=== PATIENT | female | born 1990 | race Hispanic/Latino ===

== ENCOUNTER 2016-11-05 22:50 | Inpatient (IN) | payer MEDICAID ==
[~2016-11-05] VITALS: Ht 154.3 cm; Wt 62.1 kg
[2016-11-05] MEDS ORDERED: CeFAZolin Inj 2 GM in IV Premix 1 EACH IV STA (23:43)
[2016-11-05] MEDS ORDERED: Lactated Ringer's 1,000 ML IV SCH (23:43)
[2016-11-05] MEDS ORDERED: Carboprost 250 mCg/mL Inj IM PRN (23:45)
[2016-11-05] MEDS ORDERED: Methylergonovine 0.2 mg/mL Inj IM PRN (23:45)
[2016-11-05] MEDS ORDERED: Oxytocin 10 Unit/mL Inj IM PRN (23:45)
[2016-11-05] MEDS ORDERED: Hemorrhage Kit, Post Partum XX ONE (23:45)
[2016-11-05] MEDS ORDERED: Sodium Citrate-Citric Acid 15 mL Solution PO SCH (23:45)
--- NOTE | 2016-11-05 23:55 | PCM.HPOB ---
Subjective Referring Provider: Admitting Physician: Shadia Laurent MD Primary Care Physician: Lindsey Franco MD Attending Physician: Shadia Laurent MD Chief Complaint Contractions History of Present History of Present Illness She is a 26-year-old female 2 para 1001 with an estimated due date of 11/20/2016 by LMP and confirmed by an 8 week ultrasound. She presents to the [facility] with complaints of contractions since yesterday. She reports that her contractions have become more intense and she has had some pink vaginal discharge at home. On presentation to the [facility] she was found to be 2 cm dilated and appeared uncomfortable with contractions. She has a history of a previous delivery for breech presentation at 30 weeks and 5 days. This has been complicated by an outbreak of shingles proven by culture on 08/21/2016. She had a positive IgG titer. He has a remote history of syphilis and Chlamydia that were both treated. She had an abnormal one-hour glucose, but normal three-hour glucose tolerance test. Obstetrical Complications: Other (concern for macrosomia) Past Medical History Obstetrical History: Her first she had a primary delivery at 38 weeks for breech presentation without complications. Gynecologic History: She has a history of ASCUS Pap with high-risk HPV in 2013. Her menstrual this mass her was on 04/30/2016 and was normal. She has a history of syphilis in 2007 that was treated He has a history of many in 2007 and was treated Medical History: History of symmetrical thyromegaly Surgical History: delivery Social History: She denies any alcohol tobacco or illicit drug use Hx Tobacco Use: No Hx Alcohol Use: No Hx Substance Use: No Past Family History Family History No significant past family history Living Arrangement: with Family Genetic Screening/Counseling Genetic Screening/Counseling: Negative Baby father-had child w defect: No Allergy Coded Allergies: No Known Allergies (Unverified Allergy, Unknown, 09/30/14) Exam Vital Signs Afebrile vital signs stable Exam Heart rate tracings category 1 and patient is anila every 5 minutes Constitutional: Well-developed HEENT: Atraumatic Lungs: Clear to Auscultation Heart: Exam Unremarkable Abdomen: Gravid Neurological/Psychiatric: Alert, Oriented X3, Cooperative, Mild Distress Neuro: Grossly Neurologically Intact Labs/Diagnostics Maternal Blood Type: O (Positive) Previous Infant with GBS: No Rubella: Immune Lab History: Positive for: Hx Chicken Pox OB Intrapartum Assessment/Plan Problems: (1) Previous delivery affecting Plan: Plan for repeat delivery. I reviewed with the patient risk of repeat delivery with insurance analyst and informed consent was obtained. Status: Acute ICD Code: O34.219 (2) 37 weeks gestation of Plan: 38 weeks on 11/06/2016 Status: Acute ICD Code: Z3A.37 Curly Alejandro MD Nov 05, 2016 23:55
[2016-11-06 00:04] LABS: Mean Corpuscular Hemoglobin 27.3 pg (27.0-35.0); Mean Corpuscular Volume 83.8 fL (81-100)
--- NOTE | 2016-11-06 00:39 | PCM.HPANE ---
Patient Data Date of Service: Nov 06, 2016 Surgeon Admitting Provider:Shadia Laurent MD Attending Provider:Shadia Laurent MD Primary Care Physician:Lindsey Franco MD Other Provider:Ina Barksdale Anesthesia Reason for Visit Term Labor TERM LABOR Ht/WT & BMI Height (Centimeters): 154.3 Weight (Kilograms): 62.14 Body Mass Index 26.1 Allergies Coded Allergies: No Known Allergies (Unverified Allergy, Unknown, 09/30/14) Past Anesthesia History Anesthesia History: Denies:: Anesthesia Reactions, Fam Anesthesia Reaction, Fam Malignant Hypertherm Diabetes History Hx Diabetes?: No Medications Hypertension Medication: No Home Meds Incl Beta Nani: No History History of ENT Problems?: No HEENT History: Denies:: TMJ Denture Type: None Teeth Condition: Within Normal Limits Hx of Heart Problems?: No Cardiovascular History: Denies:: Congestive Heart Failure Hypertension Valvular Heart Disease Hx of Respiratory Problem?: No Respiratory History: Denies:: Asthma Tuberculosis Hx Neurologic Problems?: No Hx of GI Problems?: No Hx of Problems?: No Female Hx: Positive for:: Currently Hx Musculoskeletal Problems?: No Hx Surgeries?: Yes (C-sec x1 (2009)) Hx Diabetes: No Hx Alcohol Use: NoHx Substance Use: No Smoking Status: Never Smoker Have You Smoked inLast 12 mo: No Stop/Bang Risk Assessment Category Category 1A: Patient has history of documented sleep apnea, and HAS NOT received any narcotic, sedative or anesthesia administration during this stay. Category 1B: Patient has history of documented sleep apnea, and HAS received any narcotic , sedative or anesthesia administration during this stay Category 2: Patient has SUSPECTED Obstructive Sleep Apnea, and HAS received any narcotic , sedative or anesthesia administration during this stay. Category 3: Patient has SUSPECTED Obstructive Sleep Apnea and HAS NOT received narcotic, sedative or anesthesia administration during this stay. Category 4: Outpatient in Procedural Areas with known sleep apnea or who screen positive for High Risk via the STOP/BANG questionnaire. Exam Exam General Appearance: Alert, Oriented X3, Cooperative, Mild Distress HEENT/AIRWAY: MP 3, Mouth Opening (3 fb) Lungs: Clear to Auscultation Heart: Exam Unremarkable, Regular Rate/Rhythm, No Murmurs/Rubs/Gallops Meds/Labs/Diagnostics Admission Meds Current Medications Lactated Ringer's (Lr) 1,000 ml @ 125 mls/hr Q8H IV Last administered on t 00:15; Start 11/05/16 at 23:43; Stop 11/06/16 at 07:42 Labs Test 11/05/16 23:55 White Blood Count 7.9th/mm3 (3.8-10.1) Red Blood Count 3.95mil/mm3 (3.90-5.20) Hemoglobin 10.8g/dL (12.0-15.6) Hematocrit 33.1% (35.0-46.0) Mean Corpuscular Volume 83.8fL (81-100) Mean Corpuscular Hemoglobin 27.3pg (27.0-35.0) Mean Corpuscular Hemoglobin Concent 32.6% (32.0-37.0) Red Cell Distribution Width 13.9% (12.3-15.4) Platelet Count 247bil/L (150-400) Plan Impression Patient chart reviewed, patient interviewed and anesthestic plan with risks, benefits, and alternatives discussed, and informed consent obtained. ASA Physical Status: ASA2 Plus Emergency Anesthetic Plan: SAB Bene/Risks/Altern/Consents: Yes HP Complete Prior to Induction: Yes Kade Hurst MD Nov 06, 2016 00:39
[2016-11-06] MEDS ORDERED: EPHEDrine Sulfate 50 mg/mL Inj IVPUSH PRN (01:10)
[2016-11-06] MEDS ORDERED: HYDROmorphone 1 mg/mL Inj IVPUSH PRN (01:10)
[2016-11-06] MEDS ORDERED: Ondansetron 2 mg/mL 2 mL Inj IVPUSH PRN (01:10)
[2016-11-06] MEDS ORDERED: Atropine 0.4 mg/mL Inj IV PRN (01:10)
[2016-11-06] MEDS ORDERED: Phenylephrine/NS-PF 100 mCg/mL 5 mL Syringe IVPUSH PRN (01:10)
[2016-11-06] MEDS ORDERED: fentaNYL-PF 50 mCg/mL 2 mL Inj IVPUSH PRN (01:10)
--- NOTE | 2016-11-06 02:15 | PCM.ANEP1 ---
Post Anesthesia PACU Phase 1 Assessment Date of Service: Nov 06, 2016 Vital Signs T 36.5 C HR 60 BP 119/63 RR 18 SpO2 100% on RA Anesthetic Administered: SAB Level of Alertness: Awake, talking HARKINS's with Equal Strength: No (motor block resolving) Pain: No Nausea or Vomiting: No CV Function & Hydration Stable: Yes Airway Device: none Oxygen Delivery: Room Air Lungs: Clear to Auscultation Dermatome Level: T8 (Costal Margin) (sensory block resolving) PACU Phase 2 Assessment Complications: No Follow up Care: No Patient Instructions Provided: Yes Comments Pt satisfied with anesthetic care. Kade Hurst MD Nov 06, 2016 02:15
[2016-11-06] MEDS ORDERED: Lactated Ringer's 1,000 ML IV SCH (02:33)
[2016-11-06] MEDS ORDERED: Hemorrhage Kit, Post Partum XX ONE (02:35)
[2016-11-06] MEDS ORDERED: Methylergonovine 0.2 mg/mL Inj IM PRN (02:35)
[2016-11-06] MEDS ORDERED: diphenhydrAMINE 50 mg Capsule PO PRN (02:35)
[2016-11-06] MEDS ORDERED: Oxytocin 30 Units/500 mL LR 30 UNITS in IV Premix 1 EACH IV PRN (02:35)
[2016-11-06] MEDS ORDERED: hydrOXYzine Pamoate 25 mg Capsule PO PRN (02:35)
[2016-11-06] MEDS ORDERED: Oxytocin 10 Unit/mL Inj IM PRN (02:35)
[2016-11-06] MEDS ORDERED: LANOlin HPA 7 Gm Ointment TOPICAL PRN (02:35)
[2016-11-06] MEDS ORDERED: Carboprost 250 mCg/mL Inj IM PRN (02:35)
[2016-11-06] MEDS ORDERED: Acetaminophen IV 1,000 MG in IV Premix 1 EACH IV PRN (02:35)
--- NOTE | 2016-11-06 02:59 | OP ---
[address] [address] OPERATIVE REPORT PATIENT: HEDY LALA : 1990 MR#: [id number] ADMIT: 11/05/2016 JOB ID: [id number] DATE OF SURGERY: 11/06/2016 PREOPERATIVE DIAGNOSIS(ES): 1. Previous delivery, desires repeat. 2. 38 weeks gestation, in labor. POSTOPERATIVE DIAGNOSIS(ES): 1. Previous delivery, desires repeat. 2. 38 weeks gestation, in labor. PROCEDURE PERFORMED: Repeat low transverse delivery. SURGEON: Curly Alejandro MD. CITY TREASURER: MD Dr. Isabel Meyers was necessary for this procedure to help with exposure and delivery of . ANESTHESIA: Spinal. ESTIMATED BLOOD LOSS: 500 mL. COMPLICATIONS: None. PATHOLOGY SENT: None. FINDINGS AT TIME OF SURGERY: Male in a cephalic presentation. Normal appearing uterus, fallopian tubes, and ovaries bilaterally. There was no intra-abdominal adhesions. INDICATION FOR PROCEDURE: The patient is a 26-year-old, female, 2, para 1-0-0-1, with an estimated due date of November 20, 2016, who presented to the [facility] with regular contractions, and was found to be 2 cm dilated. DESCRIPTION OF PROCEDURE: The patient was taken to the operating room, where her spinal anesthesia was found to be adequate. She was placed in a lithotomy position in a leftward tilt and prepared and draped in normal sterile fashion. A Pfannenstiel incision was made with a scalpel through her previous skin incision scar. This was carried down to the underlying fascia with the Bovie cautery. The fascia was nicked in the midline and extended laterally with the Kulkarni scissors. The underlying rectus muscle was dissected off of the fascia with blunt and sharp dissection superiorly and inferiorly. The rectus muscles were in the midline and the peritoneum was entered bluntly with surgeon's hands. This incision was extended with gentle traction. The lower uterine segment was identified. The bladder flap was created, and the uterus incised in low transverse fashion with the scalpel. The infant was delivered in a cephalic presentation without difficulty. The cord was doubly clamped and ligated after 1 minute. The was handed off to the waiting nurse and respiratory therapist. The placenta was then removed manually. The uterus was exteriorized and cleared of all clots and debris. The uterus was repaired in two layers with 0-Vicryl suture in a running fashion. Good hemostasis assured. The gutters were then irrigated with copious amounts of normal saline. The uterus was returned to the patient's peritoneal cavity. The uterine incision was inspected a second time and noted to be hemostatic. More irrigation was performed at this time. The fascia was then reapproximated with 0-Vicryl suture in a running fashion. The subcutaneous layer was closed with 0 plain gut. Skin was closed with a 4-0 Monocryl in a subcuticular fashion. Dermabond and Steri-Strips applied. All lap, instrument, and needle counts correct x2 at the end of the procedure. The patient was taken to her room in good condition.
[2016-11-06] MEDS: Ascorbic Acid 500 mg Tablet PO SCH (11:01)
[2016-11-06] MEDS: Sodium Chloride LOK Flush 10 mL Syringe IVFLUSH PRN ×2 (12:19→18:05)
[2016-11-06] MEDS ORDERED: Phenylephrine/NS-PF 100 mCg/mL 5 mL Syringe IVPUSH ONE (14:31)
[2016-11-06] MEDS ORDERED: Oxytocin 10 Unit/mL Inj ONE (14:31)
[2016-11-06] MEDS ORDERED: Morphine PF 1 mg/mL 10 mL Inj ONE (14:31)
[2016-11-06] MEDS ORDERED: Ondansetron 2 mg/mL 2 mL Inj ONE (14:31)
[2016-11-06] MEDS ORDERED: BUPIVACAINE MPF ONE (14:31)
[2016-11-06] MEDS ORDERED: MetoCLOpramide 5 mg/mL 2 mL Inj ONE (14:31)
[2016-11-06] MEDS ORDERED: EPHEDrine/NS 5 mg/mL 5 mL Syringe ONE (14:31)
[2016-11-06] MEDS ORDERED: fentaNYL-PF 50 mCg/mL 2 mL Inj ONE (14:31)
[2016-11-07] MEDS: Sodium Chloride LOK Flush 10 mL Syringe IVFLUSH PRN (00:01)
[2016-11-07 06:50] LABS: Mean Corpuscular Hemoglobin 27.3 pg (27.0-35.0); Mean Corpuscular Volume 85.6 fL (81-100)
[2016-11-07] MEDS: Ascorbic Acid 500 mg Tablet PO SCH (09:42)
[2016-11-07] MEDS ORDERED: Lidocaine 2% 5 mL Urojet Topical Jelly Syringe ONE (11:02)
--- NOTE | 2016-11-07 13:45 | PCM.PNOBPP ---
Subjective Date of Service Nov 07, 2016 Post : Repeat Ceserean Delivery Lochia: Normal Pain Management: PO pain meds Gastrointestinal: Good Appetite, No N/V Postop Activity: Ambulate without Assist Rubella: Immune Blood Type: O (Positive) Labs Laboratory Tests 11/07/16 06:31: White Blood Count 10.3, Red Blood Count 3.33, Hemoglobin 9.1, Hematocrit 28.5, Mean Corpuscular Volume 85.6, Mean Corpuscular Hemoglobin 27.3, Mean Corpuscular Hemoglobin Concent 31.9, Red Cell Distribution Width 14.1, Platelet Count 217 Exam Vital Signs Vital Signs T (max) 36.9 104/73 72 18 100% sat on RA Vital Signs: VS reviewed, stable Exam Abdomen: Fundus firm General: Alert, Oriented X3 Surgical Wound : Incision General Appearence: Intact, Well Approximated, Incision Healing, No Erythemia, No Discharge, No Inflammatory Changes OB Post Assessment/Plan Assessment The patient is a 26-year-old, 2, para 2-0-0-2 POD#1 S/p RCD for active labor , declined TOLAC. Urinary retention, Pt voided X2 in the am 200 ml Each then had sever pain S/P Scott cath reinsertion, draigned 500 ml. D/c scott cather at 5: am in the am tomorrow. Anticipate discharge tomorrow. Problems: (1) Previous delivery affecting Status: Acute ICD Code: O34.219 (2) 37 weeks gestation of Status: Acute ICD Code: Z3A.37 Lindsey Franco MD Nov 07, 2016 13:45
[2016-11-07] MEDS: oxyCODONE-Acetamin 5-325 mg Tablet PO PRN ×2 (16:41→20:51)
[2016-11-08] MEDS: oxyCODONE-Acetamin 5-325 mg Tablet PO PRN ×3 (06:01→15:44)
[2016-11-08] MEDS: Ascorbic Acid 500 mg Tablet PO SCH (10:45)
--- NOTE | 2016-11-08 13:00 | PCM.DIOB ---
Obstetrical Disch Instruction Date of Service: Nov 08, 2016 Dates of Hospitalization Date of Hospital Admission Nov 05, 2016 at 23:34 Providers Admitting Physician: Shadia Laurent MD Primary Care Physician: Lindsey Franco MD Attending Physician: Shadia Laurent MD Discharge Diagnosis Discharge Diagnosis status post repeat section Problems: (1) Previous delivery affecting Status: Acute ICD Code: O34.219 (2) 37 weeks gestation of Status: Acute ICD Code: Z3A.37 Diet Discharge Diet: No restrictions Activity Discharge Activity-General: Pelvic Rest for 6 weeks (No sex, no tampons and no douching ), Be up and about, No lifting >10 pounds for 4-6 weeks Dressing and Incisional Care Hygiene: May shower, Wash incision with soap & water (then pad dry ), DO NOT soak incision under water, NO bathtub, hot tub or whirlpool Follow Up Plan Follow-up Provider (F9): Lindsey Franco MD Follow-up appointment: Weeks (Two) Call your provider for: Fever or Chills, Shortness of breath, Heavy vaginal bleeding, Heavy bleeding, Epigastric pain, Excessive constipation, Vaginal discomfort, Red painful breasts, Other (Headache, change in vision, nausea/ vomiting, leg swelling, pain or change in color. ) Lindsey Franco MD Nov 08, 2016 13:00
[2016-11-08] MEDS ORDERED: Simethicone PO (13:03)
[2016-11-08] MEDS ORDERED: IBUP-1827 PO (13:03)
[2016-11-08] MEDS ORDERED: FERR-74 PO (13:04)
[2016-11-08] MEDS ORDERED: OXYC1TAB24 PO (13:04)
[2016-11-08] MEDS ORDERED: DOCU-41 PO (13:04)
--- NOTE | 2016-11-08 13:04 | PCM.DC.OB ---
Obstetrical Discharge Summary Date of Service Nov 08, 2016 Date of hospital admission Nov 05, 2016 at 23:34 Providers Admitting Physician: Shadia Laurent MD Primary Care Physician: Rupa Amos MD Attending Physician: Shadia Laurent MD Problems: (1) Previous delivery affecting Status: Acute ICD Code: O34.219 (2) 37 weeks gestation of Status: Acute ICD Code: Z3A.37 Brief History and Physical: She is a 26-year-old female 2 para 1001 with an estimated due date of 11/20/2016 by LMP and confirmed by an 8 week ultrasound. She presents to the [facility] with complaints of contractions since yesterday. She reports that her contractions have become more intense and she has had some pink vaginal discharge at home. On presentation to the [facility] she was found to be 2 cm dilated and appeared uncomfortable with contractions. She has a history of a previous delivery for breech presentation at 30 weeks and 5 days. This has been complicated by an outbreak of shingles proven by culture on 08/21/2016. She had a positive IgG titer. He has a remote history of syphilis and Chlamydia that were both treated. She had an abnormal one-hour glucose, but normal three-hour glucose tolerance test. ([Simethicone]) 80 MG CHEW 80 MG PO QID PRN PRN for gas Prescribed by: RUPA AMOS MD Docusate Sodium (Colace) 100 Mg Capsule 100 MG PO BID Prescribed by: RUPA AMOS MD Ferrous Sulfate (Feosol) 325 Mg Tablet 325 MG PO DAILY Prescribed by: RUPA AMOS MD Ibuprofen (Ibuprofen) 600 Mg Tablet 600 MG PO QID PRN PRN For Pain Prescribed by: RUPA AMOS MD oxyCODONE-Acetaminophen 5-325 mg (oxyCODONE-Acetaminophen 5-325 mg) 1 Each Tablet 1-2 TAB PO Q4H PRN PRN For Pain Prescribed by: MD Joan MOTA Omaima A MD Nov 08, 2016 13:04
[2016-11-08 14:26] VITALS: BP 110/59; PULSE 73; RESP 18
== END 2016-11-08 16:10 | disposition home or self-care (01) | DRG 766 ==
LOC: FBCO 22:50 → FBC 23:34
PROVIDERS: ADMIT Obstetrics & Gynecology; ATTEND Obstetrics & Gynecology
PROC: 10D00Z1 Extraction of Products of Conception, Low, Open Approach (ICD-10-PCS; principal; 2016-11-06 00:30)
DX: O34.211 Maternal care for low transverse scar from previous cesarean delivery (principal); O90.89 Other complications of the puerperium, not elsewhere classified; R33.9 Retention of urine, unspecified; Z3A.37 37 weeks gestation of pregnancy; Z37.0 Single live birth

== ENCOUNTER 2016-11-09 10:40 | Emergency (ER) | payer MEDICAID ==
[~2016-11-09 10:40] MED LIST: DOCU-41 PO; FERR-74 PO; IBUP-1827 PO; OXYC1TAB24 PO; Simethicone PO
[2016-11-09 10:42] VITALS: BP 119/78; PULSE 81; RESP 14; O2SAT 99
--- NOTE | 2016-11-09 10:59 | ED.REPORT ---
HPI-Headache Date of Service Nov 09, 2016 ED Provider: Cristobal Hopson MD 26-year-old female with recent medical history of section with spinal block presents today for severe headache. She states that this headache occurred suddenly when she stood up this morning, pain is exacerbated by sitting on the side of the bed. Patient states that the pain is so severe that she crushed her teeth this morning laying in bed as this was more comfortable position. She contacted her OB doc who suggested that she take pain medication for headache, this was of no benefit. She states that since this morning she has had constant pain in the neck area which is alleviated by laying down however not completely resolved. Also her symptoms may take anywhere between 5- 10 minutes to resolve upon laying down. She states the pain is increased while standing up she also experiences blurred vision, nausea, dizziness. Nursing Notes Stated Complaint: SUDDEN HEADACHE Chief Complaint: Headache Nursing Notes Reviewed: Yes Allergies: Coded Allergies: No Known Allergies (Unverified Allergy, Unknown, 11/09/16) Scheduled Docusate Sodium (Colace) 100 Mg Capsule 100 MG PO BID Ferrous Sulfate (Feosol) 325 Mg Tablet 325 MG PO DAILY Scheduled PRN ([Simethicone]) 80 MG CHEW 80 MG PO QID PRN PRN for gas Ibuprofen (Ibuprofen) 600 Mg Tablet 600 MG PO QID PRN PRN For Pain oxyCODONE-Acetaminophen 5-325 mg (oxyCODONE-Acetaminophen 5-325 mg) 1 Each Tablet 1-2 TAB PO Q4H PRN PRN For Pain General Time Seen by MD: 10:57 Chief Complaint Headache, Neck pain Hx Obtained From: Patient Sudden in Onset?: Yes Onset Occurred: Just prior to arrival Symptom Duration: Since onset Severity: Current: Pain level 6 out of 10 Associated with: Reports: Nausea, Pain, Visual disturbance, Denies: Fever, Vertigo, Vomiting Recent Healthcare: Recent hospitalization Risk-Headache )( SAH Risk Stratification RF Statements: Risk factors reviewed )( IC Mass Risk Stratification RF Statements: Risk factors reviewed Past Medical History Past Medical History Recent hospitalization for with spinal block Past Surgical History Reports: Smoking History Never Smoker Social History Alcohol Use: Denies alcohol use Drug Use: Denies drug use Review of Systems Complete sys rev & neg: except as marked. Physical Exam Initial Vital Signs Vital Signs (First) Date Time Temp Pulse Resp B/P Pulse Ox O2 Delivery O2 Flow Rate FiO2 11/09/16 10:42 37.1 81 14 119/78 99 Room Air Initial VS: Reviewed ENT: Mucous membranes moist, Conjunctiva normal, No scleral icterus Respiratory: Breath sounds normal, Clear to auscultation, No respiratory distress Cardiovascular: Regular rate & rhythm, Heart sounds normal, Intact distal pulses Abdomen / GI: Soft, Non-tender, No guarding, No rebound, No distention Extremities: Vascular intact, Neuro intact, No swelling, No tenderness Skin: Warm, Dry, No cyanosis Psychiatric: Mood/affect normal, Behavior normal, Normal thought content Head / Eyes: Atraumatic, Normocephalic, EOMI, No nystagmus Neurologic: Oriented X3, Speech NL, No motor deficits, No sensory deficits Mental Status: Negative: Confused Interpretation & Diagnostics Lab Results Interpretation Result Diagram: 11/09/16 1204 Test 11/09/16 10:40 11/09/16 12:04 Hold Purple Top Tube Received (Received) Hold Blue Top Tube Received (Received) Hold Galliano Top Tube Received (Received) White Blood Count 9.4th/mm3 (3.8-10.1) Red Blood Count 3.61mil/mm3 (3.90-5.20) Hemoglobin 10.1g/dL (12.0-15.6) Hematocrit 31.1% (35.0-46.0) Mean Corpuscular Volume 86.1fL (81-100) Mean Corpuscular Hemoglobin 28.0pg (27.0-35.0) Mean Corpuscular Hemoglobin Concent 32.5% (32.0-37.0) Red Cell Distribution Width 14.9% (12.3-15.4) Platelet Count 311bil/L (150-400) Neutrophils (%) (Auto) 76.3% (40-74) Lymphocytes (%) (Auto) 15.3% (14-46) Monocytes (%) (Auto) 5.2% (4-12) Eosinophils (%) (Auto) 2.0% (0-5) Basophils (%) (Auto) 0.2% (0-3) Hold Baxter Top Tube Received (Received) Re-Eval/Medical Decision Med Decision/Clinical Course 26-year-old female 2 days status post and spinal anesthesia presenting with positional headache today. She reports it is worse while she sits up and resolves while lying down. She does have some neck pain in her Brudzinski's is positive. Discussed with anesthesia and they performed a spinal patch. There is no fever or white blood cell count to suggest meningitis. Patient was discharged home with plans return if her headache returns per anesthesia. Due to her recent spinal block, his symptoms are concerning for spinal fluid leak. However the patient was also worked up for meningitis. Anesthesia consulted for further workup and determined that the best course of action would be to place a patch. After the procedure the patient remained in bed for appropriate hour. After this point the patient stated that she felt considerably better. This was then able to be discharged without incident. Lab workup by combined with physical exam is not concerning for meningitis at this point. However the patient was educated about this possibility and will return to the ED if complications arise. Counseled Regarding: Diagnosis, Lab results, Need for follow-up, When/why to return to ED Discharge & Departure Impression: Primary Impression: Postoperative spinal headache Disposition: Home Discharge Condition All VS Reviewed: Yes Condition: Stable Referrals: NOPCP (PCP) Curly Alejandro MD (Family) Cristobal Hopson MD Nov 09, 2016 10:59 Shamir Allen DO Nov 09, 2016 11:20
--- NOTE | 2016-11-09 12:13 | PCM.HPANE ---
Patient Data Surgeon Admitting Provider: Attending Provider: Primary Care Physician:Noemí De La O Other Provider: Reason for Visit Sudden Headache Ht/WT & BMI Body Mass Index Allergies Coded Allergies: No Known Allergies (Unverified Allergy, Unknown, 11/09/16) Past Anesthesia History Anesthesia History: Denies:: Anesthesia Reactions, Fam Anesthesia Reaction, Fam Malignant Hypertherm Diabetes History Hx Diabetes?: No Medications Hypertension Medication: No Home Meds Incl Beta Nani: No Active Scripts Docusate Sodium (Colace)100 Mg [id number] Mg PO BID CONSTIPATION #30 CAPSULE Ref 0 Prov:Lindsey Franco MD 11/08/16 oxyCODONE-Acetaminophen 5-325 mg 1 Each Tablet1-2 Tab PO Q4H PRN For Pain #40 TABLET Ref 0 Prov:Lindsey Franco MD 11/08/16 Ferrous Sulfate (Feosol)325 Mg [id number] Mg PO DAILY #90 TABLET Prov:Lindsey Franco MD 11/08/16 Ibuprofen 600 Mg [id number] Mg PO QID PRN For Pain #100 TABLET Ref 0 Prov:Lindsey Franco MD 11/08/16 [Simethicone] (Mylicon)80 MG CHEW No Conflict Check80 Mg PO QID PRN for gas #30 Ref 1 Prov:Lindsey Franco MD 11/08/16 History History of ENT Problems?: No HEENT History: Denies:: TMJ Denture Type: None Teeth Condition: Within Normal Limits Hx of Heart Problems?: No Cardiovascular History: Denies:: Congestive Heart Failure Hypertension Valvular Heart Disease Hx of Respiratory Problem?: No Respiratory History: Denies:: Asthma Tuberculosis Hx Neurologic Problems?: No Other Neurological Pertinent: KING since a few hours after C/S on 11/06. wores when standing says worst of her life and feels like she is dying. laying down resolves headache. unable to breast feed comfortabley. denies any fevers Hx of GI Problems?: No Hx of Problems?: No Female Hx: Positive for:: Currently Hx Musculoskeletal Problems?: No Hx Surgeries?: Yes (C-sec x1 (2008)) Hx Diabetes: No Hx Alcohol Use: NoHx Substance Use: No Smoking Status: Never Smoker Have You Smoked inLast 12 mo: No Stop/Bang Treated for Sleep Apnea?: No Do You Have a CPAP Machine?: No SAMM Risk Assessment: Low Risk, <3 Yes Risk Assessment Category Category 1A: Patient has history of documented sleep apnea, and HAS NOT received any narcotic, sedative or anesthesia administration during this stay. Category 1B: Patient has history of documented sleep apnea, and HAS received any narcotic , sedative or anesthesia administration during this stay Category 2: Patient has SUSPECTED Obstructive Sleep Apnea, and HAS received any narcotic , sedative or anesthesia administration during this stay. Category 3: Patient has SUSPECTED Obstructive Sleep Apnea and HAS NOT received narcotic, sedative or anesthesia administration during this stay. Category 4: Outpatient in Procedural Areas with known sleep apnea or who screen positive for High Risk via the STOP/BANG questionnaire. Exam Exam Vital Signs Vital Signs Date Time Temp Pulse Resp B/P Pulse Ox O2 Delivery O2 Flow Rate FiO2 11/09/16 10:42 37.1 81 14 119/78 99 Room Air General Appearance: Oriented X3 HEENT/AIRWAY: MP 2 Lungs: Normal Air Movement Heart: Regular Rate/Rhythm Plan Impression Patient chart reviewed, patient interviewed and anesthestic plan with risks, benefits, and alternatives discussed, and informed consent obtained. ASA Physical Status: ASA2 Mod Systemic Disease Anesthetic Plan: Epidural Bene/Risks/Altern/Consents: Yes HP Complete Prior to Induction: Yes Jaxson Tate MD Nov 09, 2016 12:13
[2016-11-09 12:14] LABS: BASOPHILS % (AUTO) 0.2 % (0-3); MONOCYTES % (AUTO) 5.2 % (4-12); Mean Corpuscular Volume 86.1 fL (81-100); NEUTROPHILS % (AUTO) 76.3 % (40-74); Platelet Count 311 bil/L (150-400)
--- NOTE | 2016-11-09 14:11 | PROCED ---
[address] [address] PROCEDURE NOTE PATIENT: HEDY LALA : 1990 MR#: [id number] ADMIT: 11/09/2016 JOB ID: [id number] DATE OF SERVICE: 11/09/2016 PREOPERATIVE DIAGNOSIS(ES): High suspicion of post dural puncture headache following a section on November 06, 2016. It was three days later when epidural blood patch was performed. Of note, a director chemistry was present at bedside to obtain history and physical exam, as well as get consent and answer all questions. See [facility] note for that. POSTOPERATIVE DIAGNOSIS(ES): SURGEON: Jaxson Tate MD DESCRIPTION OF PROCEDURE: Epidural blood patch was performed. The blood was obtained from a left forearm IV sterilely by an RN wearing mask, hat, and sterile gloves. ChloraPrep. Myself, I also was in full sterile gown and drape. Betadine was used x3 to clean. Lidocaine 1% wheal was used to anesthetize L4 where I can see where the spinal needle was placed. A 17-gauge Tuohy was advanced. A single pass with a loss of resistance using normal saline was had at 5 cm. At that time I injected 22 mL of blood until the patient felt a fullness in her back. I stopped and withdrew the catheter and had the patient lay down, with instructions to lay supine for at least 1 hour. No complications were had. The patient tolerated the procedure great.
[2016-11-09 14:55] VITALS: BP 111/68; PULSE 77; RESP 16; O2SAT 98
== END 2016-11-09 14:57 | disposition home or self-care (01) ==
LOC: SED 10:40 → EDBD 10:40 → SED 14:57
DX: O89.4 Spinal and epidural anesthesia-induced headache during the puerperium (principal); G97.1 Other reaction to spinal and lumbar puncture; Y84.8 Other medical procedures as the cause of abnormal reaction of the patient, or of later complication, without mention of misadventure at the time of the procedure; Y99.8 Other external cause status

== ENCOUNTER 2017-01-20 16:43 | Emergency (ER) | payer SELFPAY ==
[~2017-01-20] VITALS: Ht 152.4 cm; Wt 56.8 kg
[2017-01-20 17:11] VITALS: BP 124/84; PULSE 83; RESP 16; O2SAT 99
--- NOTE | 2017-01-20 19:17 | ED.REPORT ---
HPI-Rash / Abscess Date of Service Jan 20, 2017 ED Provider: Cezar Louis MD The pt is a 26 year old female with no pertinent medical history who presents to the ED complaining of a rash. The rash began yesterday and is characterized by redness and itching. This rash has maintained the same level of severity since onset. The pt denies difficulty breathing or swelling of the lips or face. She has not taken any new medications or been exposed to new foods or detergents. Nursing Notes Stated Complaint: RASH Chief Complaint: Skin Rash/Abscess Nursing Notes Reviewed: Yes Allergies: Coded Allergies: No Known Allergies (Verified Allergy, Unknown, 01/20/17) Scheduled Docusate Sodium (Colace) 100 Mg Capsule 100 MG PO BID Ferrous Sulfate (Feosol) 325 Mg Tablet 325 MG PO DAILY Scheduled PRN ([Simethicone]) 80 MG CHEW 80 MG PO QID PRN PRN for gas Ibuprofen (Ibuprofen) 600 Mg Tablet 600 MG PO QID PRN PRN For Pain oxyCODONE-Acetaminophen 5-325 mg (oxyCODONE-Acetaminophen 5-325 mg) 1 Each Tablet 1-2 TAB PO Q4H PRN PRN For Pain General Time Seen by MD: 19:07 Chief Complaint Rash Hx Obtained From: Patient Arrived By: Walk-in Onset Occurred: 1 day ago Symptom Duration: Since onset Recent Healthcare: No recent doctor visit, No recent hospitalization Similar Sx Previous: No Past Medical History Past Medical History hospitalization for with spinal block Past Surgical History Reports: Smoking History Never Smoker Social History Alcohol Use: Denies alcohol use Drug Use: Denies drug use Ambulatory Status Independent Review of Systems Respiratory: Denies: Non-productive cough, Shortness of breath Cardiovascular: Denies: Chest pain GI: Denies: Abdominal pain, Vomiting Musculoskeletal: Denies: Back pain, Neck pain Skin: Reports Itching, Reports Rash Complete sys rev & neg: except as marked. Physical Exam Initial Vital Signs Vital Signs (First) Date Time Temp Pulse Resp B/P Pulse Ox O2 Delivery O2 Flow Rate FiO2 01/20/17 17:11 37.3 83 16 124/84 99 Room Air Initial VS: Reviewed General/Constitutional: Awake, Alert Skin: Color NL, Warm, Dry diffuse urticarial rash on the trunk and proximal extremities Head / Eyes: Normocephalic, PERRL, EOMI no swelling of the lips or face ENT: Atraumatic, Airway patent, Mucous membranes moist Respiratory / Chest: Atraumatic, Breath sounds NL, Breath sounds = bilat, No respiratory distress Cardiovascular: Heart rate NL, Regular rhythm, Heart sounds NL, No gallop, No murmurs, No rubs Upper Extremity / MS: Atraumatic, Full range of motion Lower Extremity / Pelvis / MS: Atraumatic, Full range of motion Neurologic: Oriented X3, Speech NL, No motor deficits, No sensory deficits Neck: Atraumatic, Supple, Full range of motion Abdomen: Atraumatic, Soft, Non-tender Back: Atraumatic, Full range of motion Psychiatric: Affect NL, Mood NL Re-Eval/Medical Decision Med Decision/Clinical Course Patient is a generally healthy 26-year-old female who presents with diffuse urticarial rash about her trunk. Here in the emergency department the patient is afebrile with stable vital signs and examination as above. The patient's airway is widely patent and there is no swelling of her lips or face. The presentation is not consistent with anaphylaxis. The patient has clearly severe urticarial reaction. She has not started any new medications, eat any new foods or used any new cosmetics, soaps or detergents. The inciting agent causing her urticaria remains unclear. She was treated with Benadryl as well as prednisone here in the emergency department and reported symptomatic improvement. The patient had no progressive worsening of her rash or other concerning signs or symptoms. The rash is clearly urticarial and there are no findings suggestive of SJS, TEN or other more concerning dermatologic process. I feel the patient is appropriate for discharge. She has been provided with an additional 4 days of prednisone and advised to use Benadryl every 6 hours as needed for itching. She will follow closely with primary care physician and return right away if symptoms worsen or fail to improve. Prior to discharge follow-up and return precautions were reviewed in detail with the patient who verbalized understanding and agreement with the plan. The patient was discharged in stable condition. Re-Evaluation/Progress : Time of Eval: 19:07 Patient Status: Condition improved Re-Evaluation/Progress Note: Pt informed of the diagnosis and plan for discharge during the initial interview. The pt understands and agrees with the plan. All questions are addressed at this time. Counseled Regarding: Diagnosis, Need for follow-up, When/why to return to ED Discharge & Departure Impression: Primary Impression: Urticaria Additional Impression: Itching Disposition: Home Discharge Condition All VS Reviewed: Yes Condition: Stable Patient Instructions: Acute Rash (ED) Additional Instructions: Thank you for seeking care at the emergency room. Our primary goal today in the Emergency Department was to evaluate you for any life-threatening conditions. Your evaluation was reassuring. You will be discharged with a prescription for Prednisone, 40 mg daily for 5 days. Take this as prescribed. You can also take Benadryl every six hours as needed until the rash resolves. You should follow-up with your primary doctor in the next week. You should return to the Emergency Department immediately if you develop spreading rash, difficulty breathing, swelling of the lips or face, fevers, vomiting, cough or any other concerning signs or symptoms. Thank you for letting us partake in your care today. Referrals: [facility] (PCP) Scribe Attestation Portions of this note were transcribed by Estefania Sands. I, Dr. Louis personally performed the history, physical exam and medical decision-making; I reviewed and confirmed the accuracy of the information in the transcribed note. copies to: [facility] Beck O MD Jan 20, 2017 19:16 ESTEFANIA SANDS Jan 20, 2017 19:22
[2017-01-20] MEDS ORDERED: diphenhydrAMINE 25 mg Capsule PO ONE (19:20)
[2017-01-21] MEDS ORDERED: _PredniSONE 10 mg Tablet PO SCH (08:00)
== END 2017-01-20 20:30 | disposition home or self-care (01) ==
LOC: SED 16:43
DX: L50.9 Urticaria, unspecified (principal)